=== PATIENT | male | born 1970 | race Caucasian/White ===

== ENCOUNTER 2022-02-18 10:27 | Emergency (ER) | payer OTHER ==
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
[2022-02-18] MEDS ORDERED: traMADol 50 MG TAB PO STA (10:49)
--- NOTE | 2022-02-18 11:06 | XR ---
EXAMINATION TYPE: XR ankle complete LT, XR tibia fibula LT DATE OF EXAM: 02/18/2022 11:00 AM INDICATION: Patient age:Male; 51 years old; Reason for study: injury; COMPARISON: None TECHNIQUE: The left ankle is imaged in frontal, lateral and oblique projections. Left tibia-fibula were examined in frontal and lateral views. FINDINGS: Fracture subluxation of the left ankle joint with gapping of the medial malleolus and talus measuring up to 14 mm. There is oblique fracture through the distal fibula. There is approximately 12 mm displ acement of the fibular fracture. There is soft tissue swelling around the foot. Calcaneal plantar spu rring noted. The proximal fibula does not appear to have fracture through the fibular head. No additi onal fractures are identified. IMPRESSION: Subluxation of the tibiotalar joint laterally with oblique fracture through the fibula. Given gapping of the medial malleolus anterior talus a syndesmotic injury should be ruled out. No evidence of prox imal fibular fracture.
[2022-02-18] MEDS ORDERED: hydrALAZINE HCL 20 MG/ML 1 ML VIAL IVP STA (11:23)
[2022-02-18 11:55] LABS: Basophils # (A) 0.1 k/uL (0-0.2); Basophils % (A) 1 %; Eosinophils # (A) 0.5 k/uL (0-0.7); Eosinophils % (A) 4 %; HGB 14.8 gm/dL (13.0-17.5); Lymphocytes # (A) 2.1 k/uL (1.0-4.8); Lymphocytes % (A) 17 %; MCH 36.1 pg (25.0-35.0); MCHC 36.1 g/dL (31.0-37.0); Monocytes # (A) 0.5 k/uL (0-1.0); Monocytes % (A) 4 %; Neutrophils # (A) 8.9 k/uL (1.3-7.7); Neutrophils % (A) 73 %; Platelet Count 380 k/uL (150-450); RDW 12.4 % (11.5-15.5); WBC 12.3 k/uL (3.8-10.6)
[2022-02-18 11:58] VITALS: RESP 16
[2022-02-18 12:11] LABS: African American GFR (CKD) >90 (>60 ml/min/1.73 sqM); Anion Gap 12 mmol/L; Blood Urea Nitrogen 10 mg/dL (9-20); Calcium 9.5 mg/dL (8.4-10.2); Carbon Dioxide 27 mmol/L (22-30); Chloride 100 mmol/L (98-107); Glucose 103 mg/dL (74-99); Non-African American GFR(CKD) 78 (>60 ml/min/1.73 sqM); Sodium 139 mmol/L (137-145)
[2022-02-18 12:14] LABS: Potassium 4.9 mmol/L (3.5-5.1)
[2022-02-18 14:02] VITALS: BP 194/134; PULSE 78; TEMP 97.6
== END 2022-02-18 13:45 | disposition home or self-care (01) ==
LOC: EC 10:27
DX: S82.832A Other fracture of upper and lower end of left fibula, initial encounter for closed fracture (principal); I10 Essential (primary) hypertension; F12.90 Cannabis use, unspecified, uncomplicated; W50.0XXA Accidental hit or strike by another person, initial encounter
CPT/HCPCS: 99283 ×2; 96374 ×2; 29515 ×2; 36415; 80048; 85025; 73590; 73610; J0360; 99284

== ENCOUNTER 2022-02-23 14:05 | Observation (INO) | payer OTHER ==
[2022-02-20 09:08] VITALS: BMI 30.9
[2022-02-23] MEDS ORDERED: LACTATED RINGERS 1,000 ML IV ONE ×2 (15:02→17:23)
[2022-02-23] MEDS ORDERED: ONDANSETRON 4 MG/2 ML VIAL ONE (15:10)
[2022-02-23] MEDS ORDERED: DEXAMETHASONE SOD PHOSPHATE 4 MG/ML 1 ML VIAL IVP ONE (15:16)
[2022-02-23] MEDS ORDERED: MIDAZOLAM 2 MG/2 ML VIAL IVP ONE (15:22)
[2022-02-23] MEDS ORDERED: fentaNYL (PF) 50 MCG/1 ML VIAL IVP ONE (15:22)
[2022-02-23] MEDS ORDERED: PROPOFOL 10 MG/ML 20 ML VIAL IV ONE (16:41)
[2022-02-23] MEDS ORDERED: DEXAMETHASONE SOD PHOSPHATE 4 MG/ML 1 ML VIAL ONE (16:41)
[2022-02-23] MEDS ORDERED: ROPIVACAINE 5 MG/ML 30 ML VIAL ONE (16:41)
[2022-02-23] MEDS ORDERED: fentaNYL (PF) 50 MCG/ML 2 ML AMP ONE (16:41)
[2022-02-23] MEDS ORDERED: LIDOCAINE 2% INJ 20 MG/ML (2 ML VIAL) ONE (16:41)
[2022-02-23] MEDS ORDERED: MIDAZOLAM 2 MG/2 ML VIAL ONE (16:41)
[2022-02-23] MEDS ORDERED: SODIUM CHLORIDE 0.9% (PF) 10 ML VIAL ONE (16:41)
[2022-02-23] MEDS ORDERED: PHENYLEPHRINE-0.9% NACL SYG 1,000 MCG/10 ML SYRINGE ONE (16:41)
[2022-02-23] MEDS ORDERED: ePHEDrine 50 MG/ML 1 ML VIAL ONE (16:41)
--- NOTE | 2022-02-23 17:15 | P.ANPRN ---
Procedure Note - Anesthesia - Nerve Block Performed Left Adductor Canal Single Time Out Performed: Yes Date of Procedure: 02/23/22 Procedure Start Time: Procedure Stop Time: Location of Patient: PreOp Indication: Requested by Surgeon Specifically requested for management of pain by DrMauricio: Blake Dinh Sedation Type: Sedate with meaningful contact maintained Preparation: Sterile Prep Position: Supine Needle Types: Aktinoy Needle Gauge: 21 Ultrasound used to visualize needle placement: Yes Ultrasound used to observe medication spread: Yes Injectate: 0.5% Ropivacaine (see comment for volume) (15 ml +10 ml NSPF) Blood Aspirated: No Pain Paresthesia on Injection Noted: No Resistance on Injection: Normal Image Stored and Saved: Yes Events: Uneventful and Well Tolerated
--- NOTE | 2022-02-23 17:17 | P.ANPRN ---
Procedure Note - Anesthesia - Nerve Block Performed Left Popliteal Single Time Out Performed: Yes Date of Procedure: 02/23/22 Procedure Start Time: 15:28 Procedure Stop Time: 15:32 Location of Patient: PreOp Indication: Requested by Surgeon Specifically requested for management of pain by DrMauricio: Blake Dinh Sedation Type: Sedate with meaningful contact maintained Preparation: Sterile Prep Position: Right Lateral Needle Types: Pajunk Needle Gauge: 21 Ultrasound used to visualize needle placement: Yes Ultrasound used to observe medication spread: Yes Injectate: 0.5% Ropivacaine (see comment for volume) (15 ml +10 ml NS PF + 4 mg Dexamethason) Blood Aspirated: No Pain Paresthesia on Injection Noted: No Resistance on Injection: Normal Image Stored and Saved: Yes Events: Uneventful and Well Tolerated
[2022-02-23] MEDS ORDERED: HYDROmorphone 0.5 MG/0.5 ML SYRINGE IVP PRN ×2 (18:37)
[2022-02-23] MEDS ORDERED: HYDROmorphone 1 MG/ML 1 ML SYRINGE IVP PRN (18:37)
[2022-02-23] MEDS ORDERED: ONDANSETRON 4 MG/2 ML VIAL IVP PRN (18:37)
[2022-02-23] MEDS ORDERED: SENNOSIDES-DOCUSATE SODIUM 1 EACH TAB PO PRN (18:37)
[2022-02-23] MEDS ORDERED: hydrOXYzine pamoate 25 MG CAP PO PRN (18:37)
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
[2022-02-23] MEDS: ENALAPRILAT 1.25 MG/ML 1 ML VIAL IVP ONE ×2 (19:11→19:30)
[2022-02-23] MEDS: HYDROcodone/APAP 5-325MG 1 EACH TAB PO PRN (20:16)
[2022-02-23] MEDS: LACTATED RINGERS 1,000 ML IV SCH (20:30)
--- NOTE | 2022-02-23 21:03 | XR ---
EXAMINATION TYPE: XR ankle limited LT DATE OF EXAM: 02/23/2022 COMPARISON: NONE HISTORY: Ankle surgery TECHNIQUE: FINDINGS: 2 minutes and 12 seconds of fluoroscopic time was recorded. Multiple fluoroscopic images we re obtained and show placement of plate and screws fixating the distal fibular fracture. Ankle mortis e is anatomic. There is a transverse band fixing the distal tibia fibular joint. IMPRESSION: No complicating process seen.
[2022-02-24] MEDS ORDERED: hydrALAZINE HCL 25 MG TAB PO STA (00:47)
[2022-02-24] MEDS: HYDROcodone/APAP 5-325MG 1 EACH TAB PO PRN ×3 (00:54→13:36)
[2022-02-24 01:00] VITALS: RESP 18
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
[2022-02-24] MEDS ORDERED: LABETALOL 200 MG TAB PO STA (03:25)
[2022-02-24] MEDS: LACTATED RINGERS 1,000 ML IV SCH (03:30)
--- NOTE | 2022-02-24 07:54 | P.DS ---
Providers Date of admission: 02/24/22 07:03 Attending physician: Blake Dinh Consults: 02/23/22 21:36 Consult Physician Routine Consulting Provider: Yoni Parham Consult Reason/Comments: medical management Do you want consulting provider notified?: Yes Primary care physician: Stated None Hospital Course: The patient underwent uncomplicated ankle fracture surgery last evening. Due to concerns about mobilization and elevated blood pressure was admitted overnight for observation and internal medicine consultation. Internal medicine managed his hypertension. He was seen by physical therapy. His pain was controlled. He was ultimately discharged home on postoperative day #1. Plan - Discharge Summary Discharge Rx Participant: Yes New Discharge Prescriptions: New Aspirin 81 mg PO BID 14 Days #28 tab Docusate [Colace] 100 mg PO BID #60 capsule HYDROcodone/APAP 5-325MG [[place] 5-325] 1 - 2 tab PO Q6HR PRN 7 Days #28 tab PRN Reason: Pain No Action Ibuprofen 800 mg PO Q8H PRN PRN Reason: Pain amLODIPine [Norvasc] 10 mg PO DAILY 30 Days #30 tablet HYDROcodone/APAP 5-325MG [[place] 5-325] 1 tab PO Q6HR PRN PRN Reason: Pain Melatonin(Dose Unknown) 1 tab PO HS PRN PRN Reason: sleep Multivit-Mins/Iron/Folic/Lycop [Centrum Men's Tablet] 1 each PO DAILY Discharge Medication List amLODIPine [Norvasc] 10 mg PO DAILY 30 Days #30 tablet 02/18/22 [Rx] HYDROcodone/APAP 5-325MG [[place] 5-325] 1 tab PO Q6HR PRN 02/20/22 [History] Ibuprofen 800 mg PO Q8H PRN 02/20/22 [History] Melatonin(Dose Unknown) 1 tab PO HS PRN 02/20/22 [History] Multivit-Mins/Iron/Folic/Lycop [Centrum Men's Tablet] 1 each PO DAILY 02/20/22 [History] Aspirin 81 mg PO BID 14 Days #28 tab 02/23/22 [Rx] Docusate [Colace] 100 mg PO BID #60 capsule 02/23/22 [Rx] HYDROcodone/APAP 5-325MG [[place] 5-325] 1 - 2 tab PO Q6HR PRN 7 Days #28 tab 02/23/22 [Rx] Follow up Appointment(s)/Referral(s): Blake Dinh MD [Medical Doctor] - 2 Weeks Activity/Diet/Wound Care/Special Instructions: Strict non-weight bearing operative extremity. Use crutches, knee scooter, or walker to ambulate. Keep splint clean, dry, in place until follow-up appointment in the office. Do not remove splint. Take pain medications as prescribed. Take aspirin 81mg BID x 2 weeks for blood clot prevention. Follow-up in the office in two weeks at [facility]. Call the office with any questions or concerns, .
--- NOTE | 2022-02-24 07:56 | P.PN ---
Subjective Progress Note Date: 02/24/22 The patient is admitted overnight. He had elevated blood pressure and internal medicine was consulted. This morning he has some tingling in his foot but the block is still working. Objective - Vital Signs Vital signs: Vital Signs Temp 97.8 F 02/24/22 01:00 Pulse 81 02/24/22 01:00 Resp 18 02/24/22 01:00 BP 155/92 02/24/22 04:49 Pulse Ox 92 L 02/24/22 01:00 FiO2 Intake & Output 02/23/22 02/24/22 02/24/22 18:59 06:59 18:59 Intake Total 1450 100 Output Total 10 1200 Balance 1440 -1100 Weight 84.1 kg 84.1 kg Intake: IV 1450 100 Output: Urine 1200 Estimated Blood Loss 10 Other: Voiding Method Urinal - Exam The patient is resting comfortable in his bed. A focused exam of the left leg was conducted. There is a clean-appearing splint. His toes are warm and well perfused. Sensation is intact to light touch. Assessment and Plan Assessment: post operative day #1 status post left ankle open reduction internal fixation Plan: The patient is to be strictly nonweightbearing on his left lower extremity. Presciptions were placed for crutches and and wheelchair. Internal medicine consultation for blood pressure management appreciated. We'll plan for discharge home later this morning the passes physical therapy and his pain is controlled.
[2022-02-24 08:17] VITALS: BP 145/89; PULSE 66; TEMP 98.3
[2022-02-24] MEDS ORDERED: amLODIPine 10 MG TAB PO SCH (09:00)
--- NOTE | 2022-02-24 09:10 | FL ---
EXAMINATION TYPE: FL guidance operating room DATE OF EXAM: 02/23/2022 FLUOROSCOPY Fluoroscopy time of 2 minutes 12 seconds was used during left ankle fracture fixation. 11 image/s do cument/s the procedure.
[2022-02-24 09:40] LABS: Basophils # (A) 0.04 X 10*3/uL (0.00-0.10); Basophils % (A) 0.3 %; Eosinophils # (A) 0 X 10*3/uL (0.04-0.35); Eosinophils % (A) 0 %; HCT 39.2 % (39.6-50.0); HGB 13.2 g/dL (13.0-17.0); Immature Grans, Automated 1.4 %; Lymphocytes % (A) 8.3 %; MCHC 33.7 g/dL (32.0-37.0); Mean Platelet Volume 9.5 fL (9.5-12.2); Monocytes # (A) 0.24 X 10*3/uL (0.20-1.00); NRBC Per 100 WBC 0 /100 WBCS (0.0-0.0); Neutrophils # (A) 10.57 X 10*3/uL (1.80-7.70); Platelet Count 315 X 10*3/uL (140-440); RBC 3.77 X 10*6/uL (4.40-5.60); RDW 12.8 % (11.5-14.5); WBC 12.02 X 10*3/uL (4.50-10.00)
--- NOTE | 2022-02-24 10:48 | P.PN ---
Subjective Progress Note Date: 02/24/22 Hospital course: Patient is a very pleasant 51-year-old male with a past medical history of hypertension. He is currently admitted under orthopedic surgery team status post ORIF of left lateral malleolus and syndesmosis secondary to displaced left bimalleolar equivalent ankle fracture. We are consulted for medical management throughout patient's hospitalization. Physical exam: Patient was seen and fully evaluated at bedside this morning. Patient reports he is feeling "great" and ready to go home. He denies having any headache, lightheadedness, dizziness, chest pain, palpitations, or experiencing any numbness/tingling in his extremities. Patient reports postoperative pain is controlled. Patient's at bedside. Morning labs reviewed and stable revealing mild leukocytosis with WBC count of 12.02. Vital signs stable this morning with blood pressure 145/89 and heart rate of 66 prior to medication administration. Patient is medically stable for discharge home once cleared by primary admitting orthopedic surgery team. Vital signs reviewed and stable. General: Nontoxic, no distress and appears stated age. Derm: Skin warm and dry, normal coloration for ethnicity. Head: Atraumatic, normocephalic and symmetric. Eyes: EOMs intact, no lid lag, and anicteric sclera Mouth: no lip lesions, mucus membranes moist Cardiovascular: regular rate and rhythm with normal S1S2, no murmur, positive posterior tibial pulses bilaterally, and cap refill < 2 seconds. Lungs: Respirations even, regular, and unlabored on room air. Lungs CTA bilaterally, no rhonchi, no rales, no wheezing, and no accessory muscle usage. Abdominal: soft, nontender to palpation, no guarding, no appreciable organomegaly Ext: ROM intact. No gross muscle atrophy, no edema, no contractures. Postsurgical splint in place left lower extremity. Neuro: Speech clear, face symmetrical and CN II-XII grossly intact with no noted focal neuro deficits Psych: Alert and oriented to person, place, time, and situation. Appropriate and pleasant affect. Assessment and Plan of Care: Status post ORIF of left lateral malleolus and syndesmosis secondary to displaced left bimalleolar equivalent ankle fracture -Management per primary admitting orthopedic surgery team including DVT prophylaxis, pain management, weightbearing, and PT/OT. Hypertension -Monitor vital signs and continue daily medication regimen with amlodipine. Thank you for allowing us to participate in the care of this pleasant patient. Do not hesitate to contact us with questions. Someone can be reached from the [facility] hospitalist group all hours of the day at [phone] or via perfect serve. I reviewed the documentation as provided by the LILY above, who is the original author of this note. I agree with the documented assessment and plan, with the following changes: none Objective - Vital Signs Vital signs: Vital Signs Temp 98.3 F 02/24/22 07:00 Pulse 66 02/24/22 07:00 Resp 18 02/24/22 07:00 BP 145/89 02/24/22 07:00 Pulse Ox 93 L 02/24/22 07:00 FiO2 Intake & Output 02/23/22 02/24/22 02/24/22 18:59 06:59 18:59 Intake Total 1450 100 118 Output Total 10 1200 Balance 1440 -1100 118 Weight 84.1 kg 84.1 kg Intake: IV 1450 100 Oral 118 Output: Urine 1200 Estimated Blood Loss 10 Other: Voiding Method Urinal - Labs CBC & Chem 7: 02/24/22 05:05 Labs: Abnormal Lab Results - Last 24 Hours (Table) 02/24/22 Range/Units 05:05 WBC 12.02 H (4.50-10.00) X 10*3/uL RBC 3.77 L (4.40-5.60) X 10*6/uL Hct 39.2 L (39.6-50.0) % MCV 104.0 H (80.0-97.0) fL MCH 35.0 H (27.0-32.0) pg Immature Gran # 0.17 H (0.00-0.04) X 10*3/uL Neutrophils # 10.57 H (1.80-7.70) X 10*3/uL Eosinophils # 0 L (0.04-0.35) X 10*3/uL
--- NOTE | 2022-02-24 14:09 | P.PN ---
Progress Note - Text Progress Note Date: 02/24/22 Patient requires a wheelchair to complete ADLS which is unable to be done with a cane or walker because of recent open reduction and internal fixation of left ankle fracture. Patient is able to self propel.
== END 2022-02-24 15:50 | disposition home or self-care (01) ==
LOC: OR 14:05 → 6NMEDSUR 18:30 → OR 02-24 07:03 → UNDODISOB 02-24 15:50
PROVIDERS: ADMIT Orthopaedic Surgery; ATTEND Orthopaedic Surgery
DX: S82.842A Displaced bimalleolar fracture of left lower leg, initial encounter for closed fracture (principal); G89.18 Other acute postprocedural pain; I10 Essential (primary) hypertension; D72.829 Elevated white blood cell count, unspecified; F12.90 Cannabis use, unspecified, uncomplicated; Z80.9 Family history of malignant neoplasm, unspecified; Z79.899 Other long term (current) drug therapy; Z79.82 Long term (current) use of aspirin; Y04.0XXA Assault by unarmed brawl or fight, initial encounter; Y92.89 Other specified places as the place of occurrence of the external cause
CPT/HCPCS: 96365; 97162; 64447; 64445; 76942; 85025; 73600; 27792; 27829; G0378; C1713; J2250; J1100; J0690 ×2; J2405; J3010 ×2; J2795; J2370; J2704; J2001

== ENCOUNTER → 2022-09-22 | Outpatient (CLI) | payer OTHER ==
--- NOTE | 2022-09-22 20:38 | US ---
EXAMINATION TYPE: US thyroid st tissue head/neck DATE OF EXAM: 09/22/2022 COMPARISON: NONE CLINICAL INDICATION: Male, 52 years old with history of I47.7 HYPOTHYROIDISM, UNSPECIFIED; GLAND SIZE: Right Lobe: 3.3 x 1.3 x 1.4 cm Overall Parenchyma: heterogenous Left Lobe: 2.6 x 1.3 x 1.1 cm Overall Parenchyma: heterogenous Isthmus Thickness: 0.3 cm NODULES RIGHT: # of nodules measured on right: 0 LEFT: # of nodules measured on left: 0 ISTHMUS: # of nodules measured in the isthmus: 0 Bilateral neck scanned, no evidence of lymphadenopathy. 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 IMPRESSION: Small heterogeneous thyroid gland suggesting chronic hypothyroidism. No discrete nodule seen.
== END | disposition home or self-care (01) ==
LOC: RADUSWWP 15:20
PROVIDERS: ATTEND Family Medicine
DX: E03.9 Hypothyroidism, unspecified (principal)
CPT/HCPCS: 76536

== ENCOUNTER → 2022-12-17 | Outpatient (CLI) | payer OTHER ==
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
== END | disposition home or self-care (01) ==
LOC: RADMRIMAIN 12:22
PROVIDERS: ATTEND Orthopaedic Surgery Sports Medicine
DX: M19.012 Primary osteoarthritis, left shoulder (principal); S43.52XD Sprain of left acromioclavicular joint, subsequent encounter; S46.012D Strain of muscle(s) and tendon(s) of the rotator cuff of left shoulder, subsequent encounter; X58.XXXD Exposure to other specified factors, subsequent encounter; M67.812 Other specified disorders of synovium, left shoulder

== ENCOUNTER 2023-01-07 05:33 | Day surgery (SDC) | payer OTHER ==
[2022-12-31 12:53] VITALS: BMI 24.7
[~2023-01-07 05:33] MED LIST: ACETAMINOPHEN TAB 500 MG TAB PO PRN; MELOXICAM 7.5 MG TAB PO PRN; ONDANSETRON 4 MG/2 ML VIAL IVP PRN; TRANEXAMIC 1,000 MG/100ML-NACL 1,000 MG in SALINE 1 100ML.BAG IVPB PRN
[2023-01-07] MEDS ORDERED: DEXAMETHASONE SOD PHOSPHATE 4 MG/ML 1 ML VIAL IV ONE (05:53)
[2023-01-07] MEDS ORDERED: LIDOCAINE 1% (10MG/ML) FOR IV START INTRADERMA PRN (05:53)
[2023-01-07] MEDS ORDERED: LACTATED RINGERS 1,000 ML IV SCH (05:53)
[2023-01-07] MEDS ORDERED: MIDAZOLAM 2 MG/2 ML VIAL IVP ONE (06:42)
[2023-01-07] MEDS ORDERED: fentaNYL (PF) 50 MCG/ML 2 ML AMP IVP ONE (06:42)
[2023-01-07] MEDS ORDERED: fentaNYL (PF) 50 MCG/ML 2 ML AMP IVP PRN (07:00)
[2023-01-07] MEDS ORDERED: MIDAZOLAM 2 MG/2 ML VIAL IV PRN (07:00)
[2023-01-07] MEDS ORDERED: HYDROmorphone 0.5 MG/0.5 ML SYRINGE IVP PRN (07:00)
[2023-01-07] MEDS ORDERED: fentaNYL (PF) 50 MCG/ML 2 ML AMP ONE (07:06)
[2023-01-07] MEDS ORDERED: TRANEXAMIC 1,000 MG/100ML-NACL PREMIX BAG ONE (07:06)
[2023-01-07] MEDS ORDERED: PHENYLEPHRINE-0.9% NACL SYG 1,000 MCG/10 ML SYRINGE ONE (07:06)
[2023-01-07] MEDS ORDERED: PROPOFOL 10 MG/ML 20 ML VIAL IV ONE (07:06)
[2023-01-07] MEDS ORDERED: LIDOCAINE 1% INJ 10MG/ML (20 ML MDV) ONE (07:06)
[2023-01-07] MEDS ORDERED: ROPIVACAINE 5 MG/ML 30 ML VIAL ONE (07:06)
[2023-01-07] MEDS ORDERED: SUCCINYLCHOLINE CHLORIDE 200 MG/10 ML VIAL IV ONE (07:06)
[2023-01-07] MEDS ORDERED: LIDOCAINE 2%-EPI 1:100,000 20 ML VIAL SQ ONE (07:39)
[2023-01-07 08:41] VITALS: TEMP 97
--- NOTE | 2023-01-07 08:44 | P.ANPRN ---
Procedure Note - Anesthesia - Nerve Block Performed Left Interscalene Single Time Out Performed: Yes ([id number]) Date of Procedure: 01/07/23 Procedure Start Time: 06:42 Procedure Stop Time: 06:47 Location of Patient: PreOp Indication: Acute Post-Operative Pain, Requested by Surgeon Specifically requested for management of pain by DrMauricio: Kendall Redmond Sedation Type: Sedate with meaningful contact maintained Preparation: Sterile Prep Position: Supine Catheter: None Needle Types: Pajunk Needle Gauge: 21 Ultrasound used to visualize needle placement: Yes Ultrasound used to observe medication spread: Yes Injectate: 0.5% Ropivacaine (see comment for volume) (30cc) Blood Aspirated: No Pain Paresthesia on Injection Noted: No Resistance on Injection: Normal Image Stored and Saved: Yes Events: Uneventful and Well Tolerated
[2023-01-07 09:42] VITALS: BP 125/77; PULSE 74; RESP 18
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
== END 2023-01-07 09:58 | disposition home or self-care (01) ==
LOC: OR 05:33
PROVIDERS: ATTEND Orthopaedic Surgery Sports Medicine
DX: M19.012 Primary osteoarthritis, left shoulder (principal); M75.42 Impingement syndrome of left shoulder; I10 Essential (primary) hypertension; E78.5 Hyperlipidemia, unspecified; G89.18 Other acute postprocedural pain; E03.9 Hypothyroidism, unspecified; F12.90 Cannabis use, unspecified, uncomplicated; Z79.890 Hormone replacement therapy; Z79.899 Other long term (current) drug therapy; Z86.59 Personal history of other mental and behavioral disorders
CPT/HCPCS: 64415; 29826; 29824; J2250; J0330; J1100; J0690; J2405; J2001; J3010; J2795; J2704; J2371

== ENCOUNTER → 2023-08-18 | Outpatient (CLI) | payer OTHER ==
--- NOTE | 2023-08-23 23:18 | XR ---
EXAMINATION TYPE: XR cervical spine 5 views comp DATE OF EXAM: 08/18/2023 COMPARISON: None HISTORY: 53-year-old M54.2, cervicalgia FINDINGS: Mild to moderate uncovertebral joint arthropathy mid to lower cervical spine. Changes do not cause an y significant bony neural foraminal narrowing on either side. Moderate disc/endplate degenerative kelvin nge C5-C6. Degenerative trace grade 1 retrolisthesis C5-C6. Remaining alignment is maintained. No pre dental space widening or prevertebral soft tissue swelling. Normal odontoid view. IMPRESSION: Mild multilevel uncovertebral joint arthropathy. Moderate degenerative disc disease C5-C6 with trace grade 1 retrolisthesis here.
== END | disposition home or self-care (01) ==
LOC: RADXRMAIN 12:57
PROVIDERS: ATTEND Family Medicine
DX: M47.812 Spondylosis without myelopathy or radiculopathy, cervical region (principal); M43.12 Spondylolisthesis, cervical region; M50.322 Other cervical disc degeneration at C5-C6 level
CPT/HCPCS: 72050

== ENCOUNTER → 2023-09-13 | Outpatient (CLI) | payer OTHER ==
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
== END | disposition home or self-care (01) ==
LOC: RADMRIMAIN 12:59
PROVIDERS: ATTEND Orthopaedic Surgery
DX: M48.02 Spinal stenosis, cervical region (principal); M50.123 Cervical disc disorder at C6-C7 level with radiculopathy; M47.22 Other spondylosis with radiculopathy, cervical region
CPT/HCPCS: 72141

== ENCOUNTER → 2023-10-29 | Outpatient (CLI) | payer OTHER ==
--- NOTE | 2023-10-29 13:01 | XR ---
EXAMINATION TYPE: XR chest 2V DATE OF EXAM: 10/29/2023 COMPARISON: NONE HISTORY: Chest pain TECHNIQUE: Frontal and lateral views of the chest are obtained. FINDINGS: There is no focal air space opacity. No evidence for pneumothorax. No pleural effusion. The cardiac silhouette size is within normal limits. The osseous structures are grossly intact. IMPRESSION: 1. No acute cardiopulmonary process.
--- NOTE | 2023-10-29 13:03 | XR ---
EXAMINATION TYPE: XR lumbosacral spine min 4V DATE OF EXAM: 10/29/2023 CLINICAL HISTORY: pain COMPARISON: NONE TECHNIQUE: Frontal, lateral, and oblique images of the lumbar spine are obtained. FINDINGS: There are 5 lumbar type vertebral bodies identified. The lumbar spine shows satisfactory alignment without evidence of acute fracture or dislocation. Vertebral body heights are within normal limits. Moderate degenerative narrowing L5-S1. Minimal ventral spondylosis. The overlying soft tis sarah appears unremarkable. IMPRESSION: No acute fracture or dislocation is seen in the lumbar spine.ICD 10 NO FRACTURE, INITIAL EVALUATION
== END | disposition home or self-care (01) ==
LOC: RADXRMAIN 11:44
PROVIDERS: ATTEND Family Medicine
DX: Z01.818 Encounter for other preprocedural examination (principal); M54.41 Lumbago with sciatica, right side; G89.29 Other chronic pain; R07.9 Chest pain, unspecified
CPT/HCPCS: 71046; 72110

== ENCOUNTER → 2023-10-29 | Outpatient (CLI) | payer OTHER ==
--- NOTE | 2023-10-29 17:29 | CA ---
Transthoracic Echo Report Name: Raúl Carcamo Age: 53 Gender: M : 1970 Exam Date: 10/29/2023 11:52 Exam Location: [facility] Ht (in): 63 Wt (lb): 133 Ordering Physician: Jin Meza MD ([id number]) Attending/Referring Phys: Telex Operator Andreea Zheng RDCS Procedure CPT: Indications: R94.31 ABNORMAL EKG Cardiac Hx: Technical Quality: Good Contrast 1: Total Dose (mL): Contrast 2: Total Dose (mL): MEASUREMENTS (Male / Female) Normal Values 2D ECHO LV Diastolic Diameter PLAX 4.6 cm 4.2 - 5.9 / 3.9 - 5.3 cm LV Systolic Diameter PLAX 3.0 cm IVS Diastolic Thickness 1.2 cm 0.6 - 1.0 / 0.6 - 0.9 cm LVPW Diastolic Thickness 1.2 cm 0.6 - 1.0 / 0.6 - 0.9 cm LV Relative Wall Thickness 0.5 RV Internal Dim ED PLAX 3.7 cm LA Systolic Diameter LX 3.6 cm 3.0 - 4.0 / 2.7 - 3.8 cm LV Diastolic Volume MOD 4C 83.2 cm??? LV Systolic Volume MOD 4C 26.3 cm??? LV Ejection Fraction MOD 4C 68.4 % LV Cardiac Index MOD 4C 2282.0 cm???/min???m??? LV Diastolic Length 4C 8.3 cm LV Systolic Length 4C 6.1 cm LV Diastolic Volume MOD 2C 97.0 cm??? LV Systolic Volume MOD 2C 24.0 cm??? LV Ejection Fraction MOD 2C 75.2 % LV Cardiac Index MOD 2C 2925.1 cm???/min???m??? LV Diastolic Length 2C 8.5 cm LV Systolic Length 2C 6.1 cm LA Volume 55.6 cm??? 18 - 58 / 22 - 52 cm??? LA Volume Index 33.8 cm???/m??? 16 - 28 cm???/m??? M-MODE Aortic Root Diameter MM 3.5 cm AV Cusp Separation MM 2.3 cm DOPPLER AV Peak Velocity 170.7 cm/s AV Peak Gradient 11.7 mmHg MV Area PHT 4.3 cm??? Mitral E Point Velocity 113.9 cm/s Mitral A Point Velocity 84.8 cm/s Mitral E to A Ratio 1.3 MV Deceleration Time 176.3 ms TR Peak Velocity 292.3 cm/s TR Peak Gradient 34.2 mmHg Right Ventricular Systolic Press 39.2 mmHg FINDINGS Left Ventricle Left ventricular ejection fraction is estimated at 55-60 %. Left ventricular cavity size normal. Mildly increased septal wall thickness. Normal left ventricular wall motion. Right Ventricle Mild right ventricular dilatation. Mild pulmonary hypertension. Right Atrium Normal right atrial size. No right atrial thrombus or mass seen. Left Atrium Mildly increased left atrial volume. No left atrial thrombus or mass present. Mitral Valve Structurally normal mitral valve. No mitral stenosis or prolapse. Trace mitral regurgitation. Aortic Valve Trileaflet aortic valve. Aortic valve sclerosis. No aortic valve stenosis or regurgitation. Tricuspid Valve Structurally normal tricuspid valve. Mild tricuspid regurgitation. Pulmonic Valve Structurally normal pulmonic valve. No pulmonic regurgitation. Pericardium No pericardial effusion. No pleural effusion. Aorta Normal size aortic root and proximal ascending aorta. CONCLUSIONS Normal left ventricular size and systolic function Mild pulmonary hypertension Mild tricuspid regurgitation Previewed by: Dr. Christopher Larios MD (Electronically Signed) Final Date: 29 October 2023 17:28
== END | disposition home or self-care (01) ==
LOC: RADECHMAIN 11:36
PROVIDERS: ATTEND Student in an Organized Health Care Education/Training Program
DX: I36.1 Nonrheumatic tricuspid (valve) insufficiency (principal); I27.20 Pulmonary hypertension, unspecified; R94.31 Abnormal electrocardiogram [ECG] [EKG]
CPT/HCPCS: 93306

== ENCOUNTER → 2023-11-16 | Outpatient (CLI) | payer OTHER | END | disposition home or self-care (01) | LOC: RADNMMAIN 10:02 | PROVIDERS: ATTEND Student in an Organized Health Care Education/Training Program | DX: R94.31 Abnormal electrocardiogram [ECG] [EKG] (principal) | CPT/HCPCS: 93351 ==

== ENCOUNTER → 2023-11-29 | Outpatient (CLI) | payer OTHER | END | disposition home or self-care (01) | LOC: LABWHC1 11:29 | PROVIDERS: ATTEND Family Medicine | DX: Z01.812 Encounter for preprocedural laboratory examination (principal) | CPT/HCPCS: 36415; 82306 ==

== ENCOUNTER → 2023-11-29 | Outpatient (CLI) | payer OTHER | END | disposition home or self-care (01) | LOC: LABPAT 12:32 | PROVIDERS: ATTEND Orthopaedic Surgery | DX: Z01.812 Encounter for preprocedural laboratory examination (principal); M47.12 Other spondylosis with myelopathy, cervical region; M48.02 Spinal stenosis, cervical region; Z22.322 Carrier or suspected carrier of Methicillin resistant Staphylococcus aureus | CPT/HCPCS: 86850; 86900; 86901; 87070 ==

== ENCOUNTER 2023-12-02 09:53 | Day surgery (SDC) | payer OTHER ==
[2023-11-30 09:47] VITALS: BMI 24.4
[~2023-12-02 09:53] MED LIST changes: -ACETAMINOPHEN TAB 500 MG TAB PO PRN; +HYDROmorphone 0.5 MG/0.5 ML SYRINGE IVP PRN; -MELOXICAM 7.5 MG TAB PO PRN
[2023-12-02] MEDS: ACETAMINOPHEN TAB 500 MG TAB PO PRN (10:30)
[2023-12-02] MEDS: GABAPENTIN 300 MG CAP PO PRN (10:30)
[2023-12-02] MEDS: LACTATED RINGERS 1,000 ML IV SCH (10:45)
[2023-12-02] MEDS ORDERED: DEXAMETHASONE SOD PHOSPHATE 10 MG/ML 1 ML VIAL ONE (12:10)
[2023-12-02] MEDS ORDERED: MIDAZOLAM 2 MG/2 ML VIAL ONE (12:10)
[2023-12-02] MEDS ORDERED: HYDROmorphone (PF) 1 MG/ML ONE (12:10)
[2023-12-02] MEDS ORDERED: TRANEXAMIC 1,000 MG/100ML-NACL PREMIX BAG ONE (12:10)
[2023-12-02] MEDS ORDERED: fentaNYL (PF) 50 MCG/ML 2 ML AMP ONE (12:10)
[2023-12-02] MEDS ORDERED: KETAMINE HCL IN 0.9 % NACL 50 MG/5 ML SYRINGE ONE (12:10)
[2023-12-02] MEDS ORDERED: ROCURONIUM 10 MG/ML (5 ML VIAL) IV ONE (12:10)
[2023-12-02] MEDS ORDERED: NEOSTIGMINE 1 MG/ML 10 ML VIAL ONE (12:10)
[2023-12-02] MEDS ORDERED: GLYCOPYRROLATE 0.2 MG/ML 2 ML VIAL ONE (12:10)
[2023-12-02] MEDS ORDERED: PHENYLEPHRINE 10 MG/ML VIAL ONE (12:10)
[2023-12-02] MEDS ORDERED: PROPOFOL 10 MG/ML 20 ML VIAL IV ONE (12:10)
[2023-12-02] MEDS ORDERED: SUCCINYLCHOLINE CHLORIDE 200 MG/10 ML VIAL IV ONE (12:10)
[2023-12-02] MEDS: IV FLUID CONTINUATION 1,000 ML IV ONE ×2 (12:16)
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
[2023-12-02] MEDS: THROMBIN (BOVINE) 5,000 UNIT VIAL TOPICAL ONE (12:50)
[2023-12-02] MEDS: LACTATED RINGERS 1,000 ML IV ONE (13:21)
--- NOTE | 2023-12-02 14:27 | P.OP ---
"Date of Procedure: 12/02/23 Preoperative Diagnosis: Current Active Problems Cervical disc disorder at C5-C6 level with radiculopathy (Acute) Cervical disc disorder at C6-C7 level with radiculopathy (Acute) Cervical herniated disc (Acute) Radiculopathy affecting upper extremity (Acute) Postoperative Diagnosis: Current Active Problems Cervical disc disorder at C5-C6 level with radiculopathy (Acute) Cervical disc disorder at C6-C7 level with radiculopathy (Acute) Cervical herniated disc (Acute) Radiculopathy affecting upper extremity (Acute) Procedure(s) Performed: -C5-6 ANTERIOR CERVICAL ARTHRODESIS -C6-7 ANTERIOR CERVICAL ARTHRODESIS -C5-7 ANTERIOR CERVICAL INSTRUMENTATION -C5-6, C6-7 INSERTION OF BIOMECHANICAL DEVICE X2 CAGES USE OF MICROSCOPE Implants: -THANG CASCADIA CAGES 9MM, 8MM -THANG OZARK PLATE/SCREW 14MM, 4.0 -[employer]NAT[employer], AUTOGRAFT Anesthesia: GETA Surgeon: Gunnar Cox Corrective Therapy Aide Teacher #1: Manny Tran (WAS PRESENT AND ASSISTED WITH ALL ASPECTS OF THE CASE FROM POSITION TO DRESSIN GPLACEMENT) Estimated Blood Loss (ml): 25 IV fluids (ml): 900 Urine output (ml): 0 Pathology: none sent Condition: stable Disposition: PACU Indications for Procedure: VARUN WATSON is a 53 yo male presenting for evaluation of neck pain, UE pain and weakness. It was my pleasure to have seen and examined VARUN WATSON. In our visit today we have had a chance to go over subjective complaints, physical examination findings and treatments including the natural course history without intervention and various interventional options. The patients imaging demonstrates the following findings: C5-6 and C6-7 spondylosis with stenosis central and foraminal that is moderate to severe along with HNP causing cord displacement, beginning myelomalacia changes as well as facet arthrosis that is moderate. No fractures or lesions noted. On a physical exam, Maritza Card demonstrates the following findings: Neck pain with RUE weakness, paresthesias and radiculopathy that is made worse by activity as well as provocative movements. + Hoffmans with 3+ reflexes as well as 4|5 strength in RUE with dermatomal deficits around C5-6 and C6-7. I have explained to the patient that as their condition progresses it will cause further neurological deficits and eventual paralysis. Based on the patients imaging, physical exam, and the rapid progression and disabling nature of their symptoms, at this time I recommend surgery in the form of a: C5-7 ACDF I discussed the risk and benefits of this procedure at length with VARUN WATSON The patient agreed to consider pursuing the procedure above mentioned. Prior to surgery, they should follow up with her PCP (Cardio, ID, IM etc) for clearance. Questions were invited and answered, and the patient wishes to proceed as outlined below. Currently, I am recommending: C5-7 ANTERIOR CERVICAL DISCECTOMY AND FUSION Description of Procedure: C5-7 ACDF The patient was seen and examined in the preoperative area. All preoperative protocols were followed. Informed consent was obtained, risks and benefits of the procedure were discussed at length. Risks including bleeding infection damage to the surrounding tissue and risk of reoperation were discussed with the patient. Risk of anesthesia up to and including was discussed with the patient. These are outlined in the risk review. They were willing to accept these risks and all the risks of surgery. The patient was given a weight-based dose of antibiotics in the form of 2 g Ancef. The patient was seen and evaluated by the anesthesia team who deemed them fit for surgery. The site was marked, the patient was willing to proceed with the procedure. The patient was transferred to the operative suite by the Department of anesthesia. They were then drifted off to sleep by the department anesthesia and GETA was performed. The patient tolerated this well. Sawyer catheter was placed by nursing staff, a-traumatically. Once confirmation of lines and ventil ation the patient was transferred to a Supine Jose F table very carefully. All bony prominences including wrists, elbows, axilla, chest, hips, and thighs, and feet were padded very well. Special attention was paid to the genitalia, and these were padded accordingly. SCDs were placed on bilateral lower extremities and were connected. Arms were well padded and placed at their side thumbs up. Once in position, again we confirmed good ventilation capabilities and that lines were running appropriately. The patients Cervical spine was then exposed. 1010s were placed outlining the incision site. Standard alcohol was used to clean the incision site and allowed to dry. C-arm was used to bio-jim the patient and confirm level for incision which was marked with a skin marker. Operative briefing was performed with all teams and everyone in agreement to proceed. The patient was then prepped and draped in a normal sterile fashion. Timeout was then performed, and all parties agreed with the procedure to be performed. Transverse skin incision was then made on the right side of the patient's neck 3 cm and dissection taken down to the platysma which was split transversely. Sub platysma flap was made, and interval identified between SCM and medial structures. Omohyoid was visualized and protected. Blunt dissection taken down to the anterior cervical fascia which was identified. Blunt probe was then placed and lateral image taken which confirmed levels for operation. These levels were then marked with a bovi. Subperiosteal dissection of the longissimus muscles were then done over these levels identifying uncovertebral joints bilaterally. Retractor was then placed deep to these muscles and held in place with a bed arm. Starting at C6-7, [place] pins were placed into C6 and C7 and gentle distraction taken out over the levels. Cynthia rongeur used to remove disc material. Operating microscope brought in for visualization. Complete discectomy performed at this level with curette, rongure and pituitary. High speed reynaldo used to remove osteophytes anteriorly and posteriorly until PLL was identified. 6-0 up curette then used to identify the canal and resect the PLL. 2-0 and 3-0 Kerrison used then to remove PLL and disc herniation and performed b/l foraminotomies. Once good decompression was accomplished, meticulous hemostasis was performed. Sizers were then placed under lateral fluoroscopy until the desired height and lordosis. Cage was then selected, packed with autograft and allograft and placed under lateral imaging. Once in good position it was tested and stable. Motors run before and after cage placement were stable. The wound was irrigated, and autograft placed lateral to the cage anteriorly for fusion. [place] pin was then removed from C7 and placed into C5. Gentle distraction taken out over C5-6 now. Complete discectomy done at C5-6 as described including decompression, b/l foraminotomies and PLL resection. Burring of endplates was minimal, osteophytes removed as described. Spacers were then sized and placed under lateral imaging. Cage selected, packed with graft and placed under lateral images. Once in position, meticulous hemostasis performed, and motors remained stable before and after cage placement. AP image confirmed good placement of cages. Wound was irrigated. A separate, non-integrated plate was then selected and sized under lateral image. The plate was then placed with screws. Fixed screws drilled into C7 b/l and screws placed. Then into C6 and finally C5 with variable screws. All locking mechanisms were set, and all screws had good purchase. Final AP and lateral images taken confirmed good placement of hardware and good reduction and latter-day of height. The wound was then irrigated copiously with NSS. Surgicel placed deep in the wound. Layered closure then performed with 3-0 Vicryl in the platysma and subQ tissue. 4-0 Strata fix in the subcuticular tissue. The wound was then cleaned, and dried and skin glue placed. Once glue dried on Opifoam was placed. The patient was then transferred back to their hospital bed a-traumatically. They were placed in a soft collar. They were then awakened by the department of anesthesia having tolerated the procedure well without complications."
[2023-12-02] MEDS ORDERED: SENNOSIDES-DOCUSATE SODIUM 1 EACH TAB PO PRN (14:46)
[2023-12-02] MEDS ORDERED: MAGNESIUM HYDROXIDE 2,400 MG/30 ML CUP PO PRN (14:46)
[2023-12-02] MEDS ORDERED: HYDROmorphone 0.5 MG/0.5 ML SYRINGE IVP PRN (14:46)
[2023-12-02] MEDS ORDERED: oxyCODONE-APAP 5-325MG 1 EACH TAB PO PRN (14:54)
[2023-12-02] MEDS: KETOROLAC 15 MG/ML 1 ML VIAL IVP STA (15:22)
--- NOTE | 2023-12-02 16:05 | XR ---
EXAMINATION TYPE: XR cervical spine limited, FL guidance operating room DATE OF EXAM: 12/02/2023 Comparison: None Clinical History: ANTERIOR CERVICAL FUSION Findings and impression: Anterior cervical fusion with [place]. 5 images saved. .7486 Gycm2 DAP
[2023-12-02] MEDS: ONDANSETRON 4 MG/2 ML VIAL IVP ONE (17:06)
[2023-12-02] MEDS: DEXAMETHASONE SOD PHOSPHATE 4 MG/ML 1 ML VIAL IV ONE (17:06)
[2023-12-02] MEDS: ACETAMINOPHEN TAB 325 MG TAB PO SCH (17:08)
[2023-12-02] MEDS ORDERED: ARTIFICIAL TEARS-HYPROMELLOSE DROPS 15 ML BTL BOTH EYES PRN (17:11)
[2023-12-02] MEDS: HYDROmorphone 1 MG/ML 1 ML SYRINGE IVP PRN (17:15)
[2023-12-02] MEDS: PREGABALIN 75 MG CAP PO SCH (20:56)
--- NOTE | 2023-12-02 22:25 | CT ---
EXAMINATION TYPE: CT cervical spine wo con DATE OF EXAM: 12/02/2023 COMPARISON: None HISTORY: 53-year-old male s/p C5-C7 ACDF TECHNIQUE: Contiguous axial scanning of the cervical spine without IV contrast. Coronal and sagittal reconstructions performed. CT DLP: 268.8 mGycm Automated exposure control for dose reduction was used. FINDINGS: Patient status post C5-C7 ACDF. Satisfactory appearance to the orthopedic hardware. Residual posterio r osteophytic ridging at C5-C6 may cause mild narrowing of the spinal canal. Trace grade 1 retrolisthesis C4-C5 and trace grade 1 anterolisthesis C7-T1. Chronic ununited ossific density posterior to the T1 spinous process. By CT, no evident canal compromise. Scattered uncovertebral joint and facet arthropathy. Changes result in mild right neural foraminal stenosis at C3-C4. More moderate to severe on the right at C5-C6. Anterior soft tissue swelling and scattered foci of soft tissue air especially along the right anteri or neck relating to surgical approach. Mild prevertebral edema and prevertebral air. IMPRESSION: RECENT POSTOPERATIVE CHANGES RELATING TO C5-C7 ACDF ABOVE.
[2023-12-03] MEDS: oxyCODONE-APAP 7.5-325MG 1 EACH TAB PO PRN (02:43)
[2023-12-03] MEDS: CYCLOBENZAPRINE 5 MG TAB PO PRN (03:53)
[2023-12-03 07:19] VITALS: BP 139/84; PULSE 70; RESP 18; TEMP 97.8
[2023-12-03 08:51] LABS: Basophils # (A) 0.03 X 10*3/uL (0.00-0.10); Basophils % (A) 0.2 %; Eosinophils # (A) 0 X 10*3/uL (0.04-0.35); Eosinophils % (A) 0 %; HCT 42.8 % (39.6-50.0); HGB 14.5 g/dL (13.0-17.0); Lymphocytes # (A) 1.29 X 10*3/uL (0.90-5.00); Lymphocytes % (A) 8.7 %; MCH 30.9 pg (27.0-32.0); MCHC 33.9 g/dL (32.0-37.0); MCV 91.3 FL (80.0-97.0); Mean Platelet Volume 10.3 FL (9.5-12.2); Monocytes # (A) 0.38 X 10*3/uL (0.20-1.00); Monocytes % (A) 2.5 %; NRBC Per 100 WBC 0 X 10*3/uL (0.00-0.01); Neutrophils # (A) 13.13 X 10*3/uL (1.80-7.70); Neutrophils % (A) 88.1 %; Platelet Count 243 X 10*3/uL (140-440); RBC 4.69 X 10*6/uL (4.40-5.60); RDW 13.6 % (11.5-14.5); WBC 14.91 X 10*3/uL (4.50-10.00)
[2023-12-03 09:07] LABS: BUN/Creat Ratio 11.56 Ratio (12.00-20.00); Blood Urea Nitrogen 10.4 mg/dL (9.0-27.0); Carbon Dioxide 20.9 mmol/L (21.6-31.8); Chloride 110 mmol/L (96-109); Glucose 140 mg/dL (70-110); Potassium 4.2 mmol/L (3.5-5.5); Sodium 142 mmol/L (135-145)
--- NOTE | 2023-12-03 09:51 | P.DS ---
Providers Date of admission: 12/02/2023 Expected date of discharge: 12/03/23 Attending physician: Gunnar Cox DO Consults: 12/02/23 14:46 Consult Physician Routine Consulting Provider: Heather Grissom Consult Reason/Comments: medical management s/p C5-C7 ADCF Do you want consulting provider notified?: Yes Primary care physician: [facility] Course: Date of admission: 12/02/2023 Date of discharge: 12/03/2023 Admission diagnosis: Cervical disc disorder at C5-C6 level with radiculopathy (Acute) Cervical disc disorder at C6-C7 level with radiculopathy (Acute) Cervical herniated disc (Acute) Radiculopathy affecting upper extremity (Acute) Discharge diagnosis: Same Attending physician: Dr. Cox Surgical procedures: C5-C7 ACDF Brief history: Patient is a 53-year-old male with a history of cervical disc disorder at C5-C6 with radiculopathy and C6/C7 with radiculopathy; cervical herniated disc; radiculopathy affecting upper extremity. At this point patient has failed conservative treatment measures and has opted to proceed with a elective C5-C7 ACDF. Hospital course: Details of patient's surgery can be found in operative report. Patient tolerated the procedure well and was subsequently transported to orthopedic floor. Patient's orthopeidc and medical care was provided daily. Patient had daily laboratory tests performed for evaluation of overall blood counts. Patient had daily physical therapy to include strengthening range of motion as well as education with walker ambulation. Patient was noted to have a relatively uneventful postoperative course. Patient reported satisfactory pain control with oral pain medications by postoperative day 1. Patient showed satisfactory progress with physical therapy. Patient moved steadily through the program and had no difficulty meeting the goals by postoperative day 1. Given patient's otherwise satisfactory course and having met physical therapy goals, plan is to discharge patient home on postoperative day 1. Discharge condition/disposition: Patient will be discharged home in stable condition. Discharge medications: Instructions are given on resumption of patient's normal daily medications per primary care recommendation, in addition patient will be prescribed Lyrica; Flexeril; senna; Duricef; Percocet 7.5 mg / 325 mg Spine Discharge and Recovery Instructions Date of Surgery: 12/02/2023 Okay to take dressing off on 12/06/2023 Diagnosis: Cervical disc disorder at C5-C6 level with radiculopathy (Acute) Cervical disc disorder at C6-C7 level with radiculopathy (Acute) Cervical herniated disc (Acute) Radiculopathy affecting upper extremity (Acute) Procedure: C5-C7 ACDF Medications: See medication list All medication refills should be obtained through your primary care doctor or your clinic spine surgeon. Please discuss prescription refills at your follow up appointment. Do not call the hospital for medication refills. Dressing: Leave your dressing in place for a total of 5 days post operatively. Then you may remove your dressing and leave open to air. Keep the area clean and if not able to keep area clean, then cover with sterile gauze and tape. Showering: You may shower 3 days after your procedure allowing soap and water to run over incision. Do not scrub. Do not soak. Blot dry. Follow up: Please confirm a follow up appointment with your surgeon 3 weeks post operatively. Please make an appointment to follow up with your PCP in 1-2 weeks after surgery for evaluation '3 phase, 3-week plan' POST OP WEEKS 1-3 1. Lifting/carrying/pushing/pulling limited to less than 5 pounds. 2. Do not sit for longer than 15 minutes at one time. Get up and walk around. Prolonged sitting is NOT advised. If you lay down, see if you can tolerate laying down on you front (belly side) 3. Walk for periods of 15 minutes = 1 mile but no longer; do it multiple times times each day. 4. Ice your low back after activity. POST OP WEEKS 3-6 1. Lifting limited to less than 20 pounds. 2. Do not sit for longer than 30 minutes at a time. Frequently change positions. Use a sit-to stand workstation or take frequent breaks from sitting if you have returned to work. 3. Walk for 30 minutes each day. If possible, do these three or more times a day POST OP WEEKS 6+ At your 6-week appointment we will give you a physical therapy referral to focus on a core stabilization and strengthening program. You should also work on leg & buttock strengthening, hamstring & quadriceps stretching, and continue a low impact aerobic activity program such as swimming, walking, or riding a stationary bicycle. During the initial 6 weeks after your surgery, you are at the highest risk of re-injuring your spine. You should generally avoid BLT's (bending, lifting and twisting combination motions) and follow the above guidelines to reduce the chance of reinjury. You can anticipate post op appointments in our office at approximately 3 weeks and 6 weeks after your surgery. INCISION CARE: If your incision is not draining you do NOT need to cover it with a dressing. Keep your incision clean, dry and intact. In most cases, we apply skin glue, raza or sutures to the incision at the time of surgery. This will be like a crust or have the appearance of a scab and will fall off in time on its own. The stitches or raza need to be removed at 3 weeks post op appointment. You may begin to shower 3 days after surgery (this allows the glue to vila well). However, please avoid scrubbing the incision site or peeling off any of the skin glue. This will ensure optimal healing of your incision. Also, during this time avoid soaking the incision area in water - this includes swimming pools, hot tubs or baths. No ointments, lotions or oils on the incision until your surgeon allows. Leave raza, sutures or glue in place. Neurological dysfunction that comes on suddenly can also be a sign of a stroke. Below some common symptoms of a stroke are listed: B - balance difficulty such as sudden onset walking or leaning to one side - NEW E - eye problem such as sudden double vision or trouble seeing on one side - NEW F - Facial weakness or numbness on one side - NEW A - Arm or leg weakness or numbness on one side - NEW S - Slurred speech or difficulty with word finding - NEW T - Time is BRAIN! Call 911 as soon as you recognize these symptoms Diet: Consume a regular diet rich in vegetables and lean protein such as chicken or fish. You should consume in a ratio of approximately 20% fats|40% carbohydrates|40%protein. Vegetables, sweet potatoes, brown rice or quinoa are examples of good carbohydrates. Chips, white bread, cookies and sweets/sugar are examples of bad carbohydrates. Limit your bad carbs, go wild with good carbs. "Life's Simple 7" Guidelines as per [place] [employer] These will help you reclaim your life after surgery and continuous drier helper in your recovery, keeping in mind your restrictions. (1) Get Active. Physical activity can help people lose weight, control high blood pressure and cholesterol, feel emotionally better, and sleep better. (2) Control Cholesterol. Avoid a diet high in saturated fat, trans fat, & cholesterol. Limit whole milk & cream, ice cream, butter, egg yolks, processed meats (like sausage and hot dogs), and fatty meats. Choose healthy foods that are low in saturated fat, trans fat and cholesterol which include: Fruits and vegetables, fiber rich grain products (like whole grain pasta and brown rice), lean meat such as chicken, fish, nuts, seeds, and legumes. (3) Eat Better. Eat small portions. Shop at the grocery with a list and do not stray from it. Tips for a healthy diet include: Limit sodium intake to less than 1500mg daily, avoid prepackaged, processed, and fast foods, choose a diet rich in fruits, vegetables, and whole grain, high fiber foods, and limit saturated & cholesterol in your diet. (4) Manage Blood Pressure. If you have high blood pressure, you should have a cuff at home so that you can check your blood pressure regularly. Be sure you have a good cuff. An arm one is generally better than a wrist one. Bring the cuff to a doctor's appointment to validate that the measurements that your cuff are taking are accurate. Take your blood pressure twice daily when you are sitting down and relaxing. Record the numbers in a log and bring this log with you to your doctors' appointments. (5) Lose Weight if your BMI is above 25. A healthy BMI is between 19-25. To calculate Your BMI, you may use a Standard BMI Calculator on the NIH BMI w ebsite: <www.nhlbi.nih.gov/guidelines/obesity/BMI/bmicalc.htm>. Weigh oneself daily. If you are overweight, set a goal to lose weight. A pound a week loss if needed is a good target. (6) Reduce Blood Sugar. Limit foods and liquids with "added sugars." (Added sugars include sucrose, fructose, glucose, maltose, dextrose, high fructose corn syrup, corn syrup, concentrated fruit juice and honey). (7) Stop Smoking. If you smoke, quitting smoking is one of the best things that you can do for your health. Smoking increases your risk of heart attack, stroke, and peripheral vascular disease, which is a build-up of plaque in your arteries. Please discard all the cigarettes and lighters in your house. Have a plan for what you will do when you have the urge to smoke. Direct and second- hand smoke shortens your life as well as the lives of your family, friends and others around you. For your health and the health of those around you, please consider quitting! Proper Bending Body Mechanics: Maintain a wide stance with one foot slightly in front of the other. Keep your back straight. Bend utilizing the strength in your hips and knees. Do not bend at the waist. Maintain the lifted object at your waist-level close to your body. Avoid lifting weight that causes immediately pain or pain anywhere in the body afterwards. Smoking/Nicotine If there was ever one thing that you could do to increase your overall health, decrease your risk of cardiovascular problems by about 39% the second you make the choice, it is to STOP SMOKING. Your body's most instant gratification is the second you stop smoking. We have all heard the studies, read the articles but it is true, smoking is extremely bad for your overall health, and moreover it is detrimental to your bone health. Nicotine, IN ANY FORM, kills bone cells, prevents your body from healing fractures, and significantly prolongs healing after surgery. In spine surgery specifically, it increases your risk of not healing your bones to create a fusion and increases your risk of having a revision surgery due to this up to 60%. I know it is hard. I know it feels impossible. But there are ways. Take control of your life. We are here to help you through it. And when you are ready, ask us and we can direct you to help if you desire. Use the START Plan to Quit Smoking (please visit the Helpguide.org website listed below for more information): S = Set a quit date. Choose a date within the next 2 weeks, so you have enough time to prepare without losing your motivation to quit. If you mainly smoke at work, quit on the weekend, so you have a few days to adjust to the change. T = Tell family, friends, and co-workers that you plan to quit. Let your friends and family in on your plan to quit smoking and tell them you need their support and encouragement to stop. Look for a quit osmany who wants to stop smoking as well. You can help each other get through the rough times. A = Anticipate and plan for the challenges you'll face while quitting. Most people who begin smoking again do so within the first 3 months. You can help yourself make it through by preparing ahead for common challenges, such as nicotine withdrawal and cigarette cravings. R = Remove cigarettes and other tobacco products from your home, car, and work. Throw away all your cigarettes (no emergency pack!), lighters, ashtrays, and matches. Wash your clothes and freshen up anything that smells like smoke. Shampoo your car, clean your drapes and carpet, and steam your furniture. T = Talk to your doctor about getting help to quit. Your doctor can prescribe medication to help with withdrawal and suggest other alternatives. If you can't see a doctor, you can get many products over the counter at your local pharmacy or grocery store, including the nicotine patch, nicotine lozenges, and nicotine gum. Resources for Quitting Smoking: <https://www.[place].gov/documents/[facility]/Quit_Tobacco_Resources_for_patients_313 480_7.pdf> Supplementation: Take recommended dosages of Vitamin D and Calcium to help fortify your bones and help them to heal. See your health maintenance packet for dosages and recommended levels. DVT/VTE prophylaxis: You will be given compression stockings from the hospital. Wear these daily for the first two weeks after surgery. You may take them off at night. You may be prescribed a medication to help thin your blood. Take this as directed. If you are not prescribed this medication, early and frequent ambulation has been shown to be the best prophylaxis to deep vein thrombosis and sequelae related to this event. Assessment: Cervical disc disorder at C5-C6 level with radiculopathy (Acute) Cervical disc disorder at C6-C7 level with radiculopathy (Acute) Cervical herniated disc (Acute) Radiculopathy affecting upper extremity (Acute) Procedures: C5-C7 ACDF Patient Condition at Discharge: Good Plan - Discharge Summary Discharge Rx Participant: No New Discharge Prescriptions: New Cyclobenzaprine [Flexeril] 10 mg PO TID #21 tab oxyCODONE HCL/ACETAMINOPHEN [Percocet 7.5-325 mg] 1 tab PO Q6HR PRN #24 tab PRN Reason: Pain Sennosides/Docusate Sodium [Senna Plus 8.6-50 mg Softgel] 1 each PO DAILY #20 capsule cefaDROXiL [Duricef] 500 mg PO Q12HR 5 Days #10 cap No Action Levothyroxine Sodium 100 mcg PO QAM Topiramate 100 mg PO HS Losartan [Cozaar] 25 mg PO QAM Rosuvastatin [Crestor] 20 mg PO HS Ondansetron [Zofran] 4 mg PO Q8HR PRN #10 tab PRN Reason: Nausea amLODIPine [Norvasc] 10 mg PO QAM oxyCODONE HCL/ACETAMINOPHEN [Percocet 5-325 mg] 1 tab PO TID PRN PRN Reason: Pain Cyclobenzaprine [Flexeril] 5 mg PO TID Pregabalin [Lyrica] 150 mg PO BID Discharge Medication List Levothyroxine Sodium 100 mcg PO QAM 12/31/22 [History] Losartan [Cozaar] 25 mg PO QAM 12/31/22 [History] Rosuvastatin [Crestor] 20 mg PO HS 12/31/22 [History] Ondansetron [Zofran] 4 mg PO Q8HR PRN #10 tab 01/07/23 [Rx] Cyclobenzaprine [Flexeril] 5 mg PO TID 11/30/23 [History] Pregabalin [Lyrica] 150 mg PO BID 11/30/23 [History] Topiramate 100 mg PO HS 11/30/23 [History] amLODIPine [Norvasc] 10 mg PO QAM 11/30/23 [History] oxyCODONE HCL/ACETAMINOPHEN [Percocet 5-325 mg] 1 tab PO TID PRN 11/30/23 [History] Cyclobenzaprine [Flexeril] 10 mg PO TID #21 tab 12/02/23 [Rx] Sennosides/Docusate Sodium [Senna Plus 8.6-50 mg Softgel] 1 each PO DAILY #20 capsule 12/02/23 [Rx] cefaDROXiL [Duricef] 500 mg PO Q12HR 5 Days #10 cap 12/02/23 [Rx] oxyCODONE HCL/ACETAMINOPHEN [Percocet 7.5-325 mg] 1 tab PO Q6HR PRN #24 tab 12/02/23 [Rx] Follow up Appointment(s)/Referral(s): Gunnar Cox DO [Doctor of Osteopathic Medicine] - 2 Weeks Patient Instructions/Handouts: Anterior Cervical Discectomy (DC), Anterior Cervical Discectomy (GEN) Activity/Diet/Wound Care/Special Instructions: Spine Discharge and Recovery Instructions Date of Surgery: 12/02/2023 Keep incision clean, dry, intact. Is okay to remove dressing on 12/07/2023. Okay to shower over incision once dressing is removed. Diagnosis: Upper extremity radiculopathy; cervical spondylosis; cervical disc herniation Procedure: C5-C7 ACDF Medications: See medication list All medication refills should be obtained through your primary care doctor or your clinic spine surgeon. Please discuss prescription refills at your follow up appointment. Do not call the hospital for medication refills. Dressing: Leave your dressing in place for a total of 5 days post operatively. Then you may remove your dressing and leave open to air. Keep the area clean and if not able to keep area clean, then cover with sterile gauze and tape. Showering: You may shower 3 days after your procedure allowing soap and water to run over incision. Do not scrub. Do not soak. Blot dry. Follow up: Please confirm a follow up appointment with your surgeon 3 weeks post operatively. Please make an appointment to follow up with your PCP in 1-2 weeks after surgery for evaluation '3 phase, 3-week plan' POST OP WEEKS 1-3 1. Lifting/carrying/pushing/pulling limited to less than 5 pounds. 2. Do not sit for longer than 15 minutes at one time. Get up and walk around. Prolonged sitting is NOT advised. If you lay down, see if you can tolerate laying down on you front (belly side) 3. Walk for periods of 15 minutes = 1 mile but no longer; do it multiple times times each day. 4. Ice your low back after activity. POST OP WEEKS 3-6 1. Lifting limited to less than 20 pounds. 2. Do not sit for longer than 30 minutes at a time. Frequently change positions. Use a sit-to stand workstation or take frequent breaks from sitting if you have returned to work. 3. Walk for 30 minutes each day. If possible, do these three or more times a day POST OP WEEKS 6+ At your 6-week appointment we will give you a physical therapy referral to focus on a core stabilization and strengthening program. You should also work on leg & buttock strengthening, hamstring & quadriceps stretching, and continue a low impact aerobic activity program such as swimming, walking, or riding a stationary bicycle. During the initial 6 weeks after your surgery, you are at the highest risk of re-injuring your spine. You should generally avoid BLT's (bending, lifting and twisting combination motions) and follow the above guidelines to reduce the chance of reinjury. You can anticipate post op appointments in our office at approximately 3 weeks and 6 weeks after your surgery. INCISION CARE: If your incision is not draining you do NOT need to cover it with a dressing. Keep your incision clean, dry and intact. In most cases, we apply skin glue, raza or sutures to the incision at the time of surgery. This will be like a crust or have the appearance of a scab and will fall off in time on its own. The stitches or raza need to be removed at 3 weeks post op appointment. You may begin to shower 3 days after surgery (this allows the glue to vila well). However, please avoid scrubbing the incision site or peeling off any of the skin glue. This will ensure optimal healing of your incision. Also, during this time avoid soaking the incision area in water - this includes swimming pools, hot tubs or baths. No ointments, lotions or oils on the incision until your surgeon allows. Leave raza, sutures or glue in place. Neurological dysfunction that comes on suddenly can also be a sign of a stroke. Below some common symptoms of a stroke are listed: B - balance difficulty such as sudden onset walking or leaning to one side - NEW E - eye problem such as sudden double vision or trouble seeing on one side - NEW F - Facial weakness or numbness on one side - NEW A - Arm or leg weakness or numbness on one side - NEW S - Slurred speech or difficulty with word finding - NEW T - Time is BRAIN! Call 911 as soon as you recognize these symptoms Diet: Consume a regular diet rich in vegetables and lean protein such as chicken or fish. You should consume in a ratio of approximately 20% fats|40% carbohydrates|40%protein. Vegetables, sweet potatoes, brown rice or quinoa are examples of good carbohydrates. Chips, white bread, cookies and sweets/sugar are examples of bad carbohydrates. Limit your bad carbs, go wild with good carbs. "Life's Simple 7" Guidelines as per [place] [employer] These will help you reclaim your life after surgery and continuous drier helper in your recovery, keeping in mind your restrictions. (1) Get Active. Physical activity can help people lose weight, control high blood pressure and cholesterol, feel emotionally better, and sleep better. (2) Control Cholesterol. Avoid a diet high in saturated fat, trans fat, & cholesterol. Limit whole milk & cream, ice cream, butter, egg yolks, processed meats (like sausage and hot dogs), and fatty meats. Choose healthy foods that are low in saturated fat, trans fat and cholesterol which include: Fruits and vegetables, fiber rich grain products (like whole grain pasta and brown rice), lean meat such as chicken, fish, nuts, seeds, and legumes. (3) Eat Better. Eat small portions. Shop at the grocery with a list and do not stray from it. Tips for a healthy diet include: Limit sodium intake to less than 1500mg daily, avoid prepackaged, processed, and fast foods, choose a diet rich in fruits, vegetables, and whole grain, high fiber foods, and limit saturated & cholesterol in your diet. (4) Manage Blood Pressure. If you have high blood pressure, you should have a cuff at home so that you can check your blood pressure regularly. Be sure you have a good cuff. An arm one is generally better than a wrist one. Bring the cuff to a doctor's appointment to validate that the measurements that your cuff are taking are accurate. Take your blood pressure twice daily when you are sitting down and relaxing. Record the numbers in a log and bring this log with you to your doctors' appointments. (5) Lose Weight if your BMI is above 25. A healthy BMI is between 19-25. To calculate Your BMI, you may use a Standard BMI Calculator on the NIH BMI website: <www.nhlbi.nih.gov/guidelines/obesity/BMI/bmicalc.htm>. Weigh oneself daily. If you are overweight, set a goal to lose weight. A pound a week loss if needed is a good target. (6) Reduce Blood Sugar. Limit foods and liquids with "added sugars." (Added sugars include sucrose, fructose, glucose, maltose, dextrose, high fructose corn syrup, corn syrup, concentrated fruit juice and honey). (7) Stop Smoking. If you smoke, quitting smoking is one of the best things that you can do for your health. Smoking increases your risk of heart attack, stroke, and peripheral vascular disease, which is a build-up of plaque in your arteries. Please discard all the cigarettes and lighters in your house. Have a plan for what you will do when you have the urge to smoke. Direct and second- hand smoke shortens your life as well as the lives of your family, friends and others around you. For your health and the health of those around you, please co nsider quitting! Proper Bending Body Mechanics: Maintain a wide stance with one foot slightly in front of the other. Keep your back straight. Bend utilizing the strength in your hips and knees. Do not bend at the waist. Maintain the lifted object at your waist-level close to your body. Avoid lifting weight that causes immediately pain or pain anywhere in the body afterwards. Smoking/Nicotine If there was ever one thing that you could do to increase your overall health, decrease your risk of cardiovascular problems by about 39% the second you make the choice, it is to STOP SMOKING. Your body's most instant gratification is the second you stop smoking. We have all heard the studies, read the articles but it is true, smoking is extremely bad for your overall health, and moreover it is detrimental to your bone health. Nicotine, IN ANY FORM, kills bone cells, prevents your body from healing fractures, and significantly prolongs healing after surgery. In spine surgery specifically, it increases your risk of not healing your bones to create a fusion and increases your risk of having a revision surgery due to this up to 60%. I know it is hard. I know it feels impossible. But there are ways. Take control of your life. We are here to help you through it. And when you are ready, ask us and we can direct you to help if you desire. Use the START Plan to Quit Smoking (please visit the Helpguide.org website listed below for more information): S = Set a quit date. Choose a date within the next 2 weeks, so you have enough time to prepare without losing your motivation to quit. If you mainly smoke at work, quit on the weekend, so you have a few days to adjust to the change. T = Tell family, friends, and co-workers that you plan to quit. Let your friends and family in on your plan to quit smoking and tell them you need their support and encouragement to stop. Look for a quit osmany who wants to stop smoking as well. You can help each other get through the rough times. A = Anticipate and plan for the challenges you'll face while quitting. Most people who begin smoking again do so within the first 3 months. You can help yourself make it through by preparing ahead for common challenges, such as nicotine withdrawal and cigarette cravings. R = Remove cigarettes and other tobacco products from your home, car, and work. Throw away all your cigarettes (no emergency pack!), lighters, ashtrays, and matches. Wash your clothes and freshen up anything that smells like smoke. Shampoo your car, clean your drapes and carpet, and steam your furniture. T = Talk to your doctor about getting help to quit. Your doctor can prescribe medication to help with withdrawal and suggest other alternatives. If you can't see a doctor, you can get many products over the counter at your local pharmacy or grocery store, including the nicotine patch, nicotine lozenges, and nicotine gum. Resources for Quitting Smoking: <https://www.[place].gov/documents/[facility]/Quit_Tobacco_Resources_for_patients_313 480_7.pdf> Supplementation: Take recommended dosages of Vitamin D and Calcium to help fortify your bones and help them to heal. See your health maintenance packet for dosages and recommended levels. DVT/VTE prophylaxis: You will be given compression stockings from the hospital. Wear these daily for the first two weeks after surgery. You may take them off at night. You may be prescribed a medication to help thin your blood. Take this as directed. If you are not prescribed this medication, early and frequent ambulation has been shown to be the best prophylaxis to deep vein thrombosis and sequelae related to this event. Discharge Disposition: HOME SELF-CARE
--- NOTE | 2023-12-03 09:59 | P.PN ---
Subjective Progress Note Date: 12/03/23 Principal diagnosis: Right upper extremity radiculopathy; C5-C6 C6-C7 disc herniation Patient was seen at bedside this morning lying in semirecumbent position with soft c-collar present over cervical spine as well as dressing present over anterior cervical spine. Patient says he has been up walking a little bit since surgery yesterday without issue. Patient says he has urinated since surgery without issue. Patient says he has not had a bowel movement yet, however, patient says he has been passing gas. Patient says he has having pain in the neck at this time still has a little bit of numbness tingling in his upper extremities however this is controlled with medication. Patient is looking forward to going home today. Patient denies any fever/chills. Objective - Vital Signs Vital signs: Vital Signs Temp 97.8 F 12/03/23 07:19 Pulse 70 12/03/23 07:19 Resp 18 12/03/23 07:19 BP 139/84 12/03/23 07:19 Pulse Ox 95 12/03/23 08:48 FiO2 Intake & Output 12/02/23 12/03/23 12/03/23 18:59 06:59 18:59 Intake Total 2350 100 Output Total 25 2100 Balance 2325 -1999 Weight 64.6 kg Intake: IV 2350 Intake, IV Titration 100 Amount ceFAZolin 2 gm In Sodium 100 Chloride 0.9% 50 ml @ 100 mls/hr IVPB Q8H [facility] Rx#: [id number] Output: Urine 2100 Estimated Blood Loss 25 - Exam Inspection: Soft c-collar present over the cervical spine. Dressing present over the anterior cervical spine which appears to be clean, dry, intact. Negative for any spotting. Sensation: Dermatomal deficit positive at C5-C6 and C6-C7. Sensation equal, symmetric, but intact throughout the rest of the exam Palpation: There is some generalized tenderness to palpation over the anterior cervical spine near incision. Nontender to palpation throughout rest of exam. Range of motion: There is some limited range of motion in the bilateral upper extremities secondary to pain referred to the neck and shoulder blades Motor: 4/5 in all major motor groups in bilateral upper extremities Neurovascular: Radial pulse intact, 2+ bilaterally. Cap refill under 3 seconds in digits of upper extremities Special test: Negative clonus. Negative Homans bilaterally. - Labs CBC & Chem 7: 12/03/23 04:54 12/03/23 04:54 Labs: Abnormal Lab Results - Last 24 Hours (Table) 12/03/23 12/03/23 Range/Units 04:54 04:54 WBC 14.91 H (4.50-10.00) X 10*3/uL Immature Gran # 0.08 H (0.00-0.04) X 10*3/uL Neutrophils # 13.13 H (1.80-7.70) X 10*3/uL Eosinophils # 0 L (0.04-0.35) X 10*3/uL Chloride 110 H (96-109) mmol/L Carbon Dioxide 20.9 L (21.6-31.8) mmol/L BUN/Creatinine Ratio 11.56 L (12.00-20.00) Ratio Glucose 140 H (70-110) mg/dL Assessment and Plan Assessment: Right upper extremity radiculopathy; C5-C6 C6-C7 disc herniation Plan: 1. Right upper extremity radiculopathy; C5-C6 C6-C7 disc herniation -postop CT scan does show implants/hardware that appears to be stable from C5-C7. Patient stable at bedside this morning with soft c-collar and dressing in place over cervical spine. Pain medication as needed. PT/OT recommendations. Discharge home today 2. Appreciate medical management 3. Pain management -Percocet; Lyrica; Flexeril 4. DVT prophylaxis -mechanical 5. GI prophylaxis -senna 6. PT/OT -weightbearing as tolerated. Soft c-collar on at all times 7. Encourage incentive spirometer use 8. Discharge planning -home today Time with Patient: Less than 30
[2023-12-03] MEDS: LEVOTHYROXINE 100 MCG TAB PO SCH (10:37)
[2023-12-03] MEDS: LOSARTAN 25 MG TAB PO SCH (10:37)
[2023-12-03] MEDS: amLODIPine 10 MG TAB PO SCH (10:37)
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
[2023-12-03] MEDS ORDERED: ATORVASTATIN 40 MG TAB PO SCH (21:00)
[2023-12-03] MEDS ORDERED: TOPIRAMATE 100 MG TAB PO SCH (21:00)
== END 2023-12-03 15:15 | disposition home or self-care (01) ==
LOC: OR 09:53 → 4SSUR 14:33 → OR 12-03 15:15
PROVIDERS: ATTEND Orthopaedic Surgery
DX: M47.22 Other spondylosis with radiculopathy, cervical region (principal); M50.123 Cervical disc disorder at C6-C7 level with radiculopathy; M48.02 Spinal stenosis, cervical region; I10 Essential (primary) hypertension; G95.89 Other specified diseases of spinal cord; E03.9 Hypothyroidism, unspecified; E66.9 Obesity, unspecified; E78.5 Hyperlipidemia, unspecified; F17.210 Nicotine dependence, cigarettes, uncomplicated; Z68.25 Body mass index [BMI] 25.0-25.9, adult; Z79.890 Hormone replacement therapy; Z79.899 Other long term (current) drug therapy